=== PATIENT | female | born 1945 | race Caucasian/White ===

== ENCOUNTER 2016-12-06 08:40 | Day surgery (SDC) | payer OTHER, BC ==
[~2016-12-06] VITALS: Ht 162.6 cm; Wt 105.4 kg
[~2016-12-06 08:40] MED LIST: ADVAIR 500/501 DISK IH; COMBIVENT RESPIM4 GM IH; LEXAPRO10 MG PO; LIPITOR10 MG PO; LO-DOSE ASPIRIN81 M1 PO; PRILOSEC OTC20 MG PO; SINGULAIR10 MG PO; VITAMIN D5000 UNI1 PO; ZESTRIL40 MG PO
[2016-12-06 09:25] VITALS: BP 195/88
[2016-12-06 19:44] VITALS: BP 134/94
[2016-12-06 23:31] VITALS: BP 141/55
[2016-12-07 03:27] VITALS: BP 132/60
[2016-12-07 07:28] VITALS: BP 139/63
[2016-12-07] MEDS ORDERED: OXAYDO5 MG PO (10:07)
[2016-12-07] MEDS ORDERED: COLACE100 MG PO (10:08)
[2016-12-07 12:14] VITALS: BP 11/55
== END 2016-12-07 12:43 | disposition home or self-care (01) ==
LOC: SDC 08:40 → NUC 10:00 → 2EAST 16:15 → 2SOUTH 16:15 → 2EAST 19:50
PROC: 0HBU0ZZ Excision of Left Breast, Open Approach (ICD-10-PCS; principal; 2016-12-06)
PROC: 3E0W3KZ Introduction of Other Diagnostic Substance into Lymphatics, Percutaneous Approach (ICD-10-PCS; principal; 2016-12-06)
PROC: 07B40ZX Excision of Left Upper Extremity Lymphatic, Open Approach, Diagnostic (ICD-10-PCS; principal; 2016-12-06)
DX: C50.912 Malignant neoplasm of unspecified site of left female breast (principal); Z17.0 Estrogen receptor positive status [ER+]; J44.9 Chronic obstructive pulmonary disease, unspecified; Z87.891 Personal history of nicotine dependence; K21.9 Gastro-esophageal reflux disease without esophagitis; E78.5 Hyperlipidemia, unspecified; I10 Essential (primary) hypertension; Z68.39 Body mass index [BMI] 39.0-39.9, adult; Z80.3 Family history of malignant neoplasm of breast; Z80.42 Family history of malignant neoplasm of prostate; Z80.52 Family history of malignant neoplasm of bladder; Z80.8 Family history of malignant neoplasm of other organs or systems; Z79.82 Long term (current) use of aspirin
CPT/HCPCS: 78195; 78999; 88305; 88307; 88342 TC; 94640; 94640 76; A9541; G0378; J0330; J0690; J1170; J2405; J3010; J3480; S0020

== ENCOUNTER 2017-01-10 08:44 | Day surgery (SDC) | payer OTHER, BC ==
[~2017-01-10] VITALS: Ht 162.6 cm; Wt 104.0 kg
[~2017-01-10 08:44] MED LIST changes: +COLACE100 MG PO; +OXAYDO5 MG PO; +PROVENTIL,2.5 MG/3 M IH; +PROZAC10 MG PO
[2017-01-10 09:36] LABS: HEMATOCRIT 42.3 % (36.0-46.0); MCV 87.6 FL (83-99)
[2017-01-10 09:46] VITALS: BP 176/79
[2017-01-10 13:27] VITALS: BP 164/67
[2017-01-10 13:54] VITALS: BP 172/74
== END 2017-01-10 14:09 | disposition home or self-care (01) ==
LOC: SDC 08:44
PROVIDERS: Surgery
PROC: 0HBU0ZZ Excision of Left Breast, Open Approach (ICD-10-PCS; principal; 2017-01-10)
DX: C50.912 Malignant neoplasm of unspecified site of left female breast (principal); Z17.0 Estrogen receptor positive status [ER+]; Z79.82 Long term (current) use of aspirin; Z87.891 Personal history of nicotine dependence
CPT/HCPCS: 85014; 85018; 88305; J0131; J0690; J1170; J2250; S0020

== ENCOUNTER 2017-04-07 22:59 | Inpatient (IN) | payer OTHER, BC ==
[~2017-04-07] VITALS: Ht 162.6 cm; Wt 111.5 kg
[2017-04-07 23:40] LABS: BASOPHIL COUNT 0.1 K/uL (0-0.1); EOSINOPHIL (%) 9.8 % (0-5); EOSINOPHIL COUNT 1.7 K/uL (0-0.3); HEMATOCRIT 41.9 % (36.0-46.0); IMMATURE GRANULOCYTE (%) 0.6 % (0.0-0.7); IMMATURE GRANULOCYTE COUNT 0.1 K/uL; INSTRUMENT ABS NEUTROPHIL CT 9.9 K/uL; LYMPHOCYTE COUNT 4.2 K/uL (1.0-2.8); MCH 27.4 PG (29.0-34.0); MCHC 31.3 G/DL (30.0-36.0); MCV 87.7 FL (83-99); MEAN PLAT.VOLUME 9.5 uM^3 (9.5-12.4); MONOCYTE (%) 7.6 % (3-12); MONOCYTE COUNT 1.3 K/uL (0-0.8); NEUTROPHIL COUNT 9.9 K/uL (1.8-6.4); PLATELET COUNT 300 K/uL (156-360); RBC DIS.WIDTH-CV 14.8 % (11.8-14.6); RBC DIS.WIDTH-SD 47.8 % (39-53); RED BLOOD COUNT 4.78 M/uL (3.80-5.20); WHITE BLOOD COUNT 17.3 K/uL (4.1-10.2)
[2017-04-07 23:52] LABS: CHLORIDE 106 mEq/L (99-109); POTASSIUM 4.2 mEq/L (3.7-5.4); SODIUM 139 mEq/L (136-147)
[2017-04-07 23:55] LABS: GLUCOSE 130 mg/dL (70-99)
[2017-04-07 23:56] LABS: ANION GAP 9 MEQ/L (2-14); TOTAL BILIRUBIN 0.3 mg/dL (0.0-1.0)
[2017-04-07 23:58] LABS: ALKALINE PHOSPHATASE 81 IU/L (3-129); GFR ESTIMATE (CALCULATED) 52 mL/min/
[2017-04-07 23:59] LABS: UREA NITROGEN (BUN) 21 mg/dL (9-23)
[2017-04-08] VITALS (7 sets, daily range): BP systolic 145–168; BP diastolic 65–76
[2017-04-08 00:02] LABS: TROP-I INTERPRETATION NEGATIVE; TROPONIN-I 0.03 ng/mL (0.0-0.30)
[2017-04-08] MEDS ORDERED: PRILOSEC20 MG PO (01:35)
[2017-04-08] MEDS ORDERED: AMLODIPINE BESY10 MG PO (01:35)
[2017-04-08] MEDS ORDERED: REMERON15 M2 PO (01:35)
[2017-04-08] MEDS ORDERED: ANASTROZOLE1 MG PO (01:36)
[2017-04-08] MEDS ORDERED: PROBIOTIC1 EAC1 PO (01:36)
[2017-04-08] MEDS ORDERED: SPIRIVA1 INHALATI IH (01:36)
[2017-04-08] MEDS ORDERED: CALCIUM 500 MG1 EACH PO (01:36)
[2017-04-08 02:37] LABS: PTT 26.9 (25-32)
[2017-04-08 05:43] LABS: METH RESISTANT S AUREUS PCR NEGATIVE (NEGATIVE)
[2017-04-08 05:44] LABS: PROBE CHECK PASS; SPECIMEN PROCESSING CONTROL PASS
[2017-04-08 06:53] LABS: TROP-I INTERPRETATION NEGATIVE; TROPONIN-I 0.05 ng/mL (0.0-0.30)
[2017-04-08 07:06] LABS: ADD MIUA? YES; BILIRUBIN NEGATIVE; BLOOD SMALL; COLOR YELLOW ((YELLOW)); GLUCOSE (STRIP) NEGATIVE; KETONES NEGATIVE; LEUKOCYTES MODERATE; NITRITE NEGATIVE; PROTEIN (STRIP) NEGATIVE; SPECIFIC GRAVITY 1.043 (1.000-1.030); UROBILINOGEN 0.2 MG/DL (0.2-1.0)
[2017-04-08 07:12] LABS: BACTERIA RARE /HPF; EPITHELIAL CELLS 1+ /HPF; MUCUS NONE SEEN /LPF; RED BLOOD CELLS 30-40 /HPF (0-5)
[2017-04-08 07:18] LABS: ANION GAP 10 MEQ/L (2-14); CHLORIDE 106 MEQ/L (99-109); GFR ESTIMATE (CALCULATED) 58 mL/min/; GLUCOSE 100 mg/dL (70-99); SAMPLE HEMOLYSIS CHECK 0; SAMPLE ICTERIC CHECK 0; SAMPLE LIPEMIA CHECK 0; SODIUM 142 MEQ/L (136-147); UREA NITROGEN (BUN) 22 mg/dL (9-23)
[2017-04-08 08:40] LABS: HEMATOCRIT 41.3 % (36.0-46.0); MCH 28.3 PG (29.0-34.0); MCV 88.4 FL (83-99); MEAN PLAT.VOLUME 9.5 uM^3 (9.5-12.4); PLATELET COUNT 263 K/uL (156-360); RBC DIS.WIDTH-CV 15.2 % (11.8-14.6); RED BLOOD COUNT 4.67 M/uL (3.80-5.20); WHITE BLOOD COUNT 14.2 K/uL (4.1-10.2)
[2017-04-08 12:49] LABS: TROP-I INTERPRETATION NEGATIVE; TROPONIN-I 0.02 ng/mL (0.0-0.30)
[2017-04-09] VITALS: BP 143/66
[2017-04-09 04:00] VITALS: BP 136/59
[2017-04-09 08:00] VITALS: BP 163/125
[2017-04-09 09:05] VITALS: BP 141/69
[2017-04-09] MEDS ORDERED: AZITHROMYCIN500 M1 PO (09:19)
[2017-04-12 14:17] LABS: LYME DISEASE SEROLOGY SCREEN NEGATIVE (NEGATIVE)
== END 2017-04-09 11:55 | disposition home or self-care (01) | DRG 309 ==
LOC: EME 22:59 → 4WEST 04-08 02:39 → EDOF 04-08 02:39 → 4WEST 04-08 04:24
PROVIDERS: Emergency Medicine; Hospitalist; Internal Medicine Cardiovascular Disease
DX: I44.1 Atrioventricular block, second degree (principal); R07.89 Other chest pain; E66.01 Morbid (severe) obesity due to excess calories; I10 Essential (primary) hypertension; G47.33 Obstructive sleep apnea (adult) (pediatric); E78.5 Hyperlipidemia, unspecified; K21.9 Gastro-esophageal reflux disease without esophagitis; Z87.891 Personal history of nicotine dependence; Z68.41 Body mass index [BMI] 40.0-44.9, adult; Z85.3 Personal history of malignant neoplasm of breast; I25.10 Atherosclerotic heart disease of native coronary artery without angina pectoris; R55 Syncope and collapse; J44.9 Chronic obstructive pulmonary disease, unspecified
CPT/HCPCS: 71020; 71275; 80048; 80053; 81003; 84443; 84484; 85025; 85027; 85610; 85730; 86618; 87641; 93005; 93306; 93971; 94640; 94640 76; 94660; 94799; 99202; 99281; 99285; J2930; J7030

== ENCOUNTER 2017-05-11 13:53 | Observation (INO) | payer OTHER, BC ==
[~2017-05-11] VITALS: Ht 162.6 cm; Wt 113.0 kg
[~2017-05-11 13:53] MED LIST changes: +AMLODIPINE BESY10 MG PO; +ANASTROZOLE1 MG PO; +AZITHROMYCIN500 M1 PO; +CALCIUM 500 MG1 EACH PO; +PRILOSEC20 MG PO; +PROBIOTIC1 EAC1 PO; +REMERON15 M2 PO; +SPIRIVA1 INHALATI IH
[2017-05-11 18:23] LABS: TROP-I INTERPRETATION NEGATIVE; TROPONIN-I 0.17 ng/mL (0.0-0.30)
[2017-05-11 20:50] VITALS: BP 131/89
[2017-05-11 22:42] VITALS: BP 138/83
[2017-05-12 04:37] VITALS: BP 119/82
[2017-05-12 07:49] VITALS: BP 145/69
[2017-05-12 11:32] VITALS: BP 128/58
[2017-05-12 16:51] VITALS: BP 136/70
[2017-05-12 19:31] VITALS: BP 136/92
[2017-05-12 23:00] VITALS: BP 141/81
[2017-05-13 03:44] VITALS: BP 145/72
[2017-05-13 07:38] VITALS: BP 112/71
[2017-05-13 11:33] VITALS: BP 139/66
[2017-05-13 15:24] VITALS: BP 135/64
[2017-05-13] MEDS ORDERED: NORCO 5/3251 TABLET PO (16:31)
[2017-05-13] MEDS ORDERED: COLACE100 MG PO (16:34)
== END 2017-05-13 17:00 | disposition home or self-care (01) ==
LOC: CATH 13:53 → 4EAST 16:29 → 2SOUTH 16:29 → 4EAST 16:29
PROVIDERS: Thoracic Surgery (Cardiothoracic Vascular Surgery)
DX: I44.1 Atrioventricular block, second degree (principal); E78.5 Hyperlipidemia, unspecified; I25.10 Atherosclerotic heart disease of native coronary artery without angina pectoris; I10 Essential (primary) hypertension; J44.9 Chronic obstructive pulmonary disease, unspecified; K21.9 Gastro-esophageal reflux disease without esophagitis; I97.89 Other postprocedural complications and disorders of the circulatory system, not elsewhere classified; R55 Syncope and collapse; I49.5 Sick sinus syndrome; E66.9 Obesity, unspecified; Z68.41 Body mass index [BMI] 40.0-44.9, adult
CPT/HCPCS: 71010; 84484; 93005; 94640; 94640 76; 99202; C1785; C1892; C1894; C1898; G0378; J0690; J2250; J3010; S0020